=== PATIENT | male | born 1980 | race Caucasian/White ===

== ENCOUNTER 2025-05-19 07:21 | Inpatient (IN) | payer OTHER ==
[2025-05-19] VITALS (16 sets, daily range): BP systolic 128–171; BP diastolic 50–106; PULSE 61–97; RESP 16–18; TEMP 36.3–36.6; O2SAT 95–96
[~2025-05-19] VITALS: Ht 172.7 cm; Wt 79.8 kg
[2025-05-19 07:55] LABS: CLARITY URINE CLEAR (CLEAR); COLOR URINE YELLOW (YELLOW); GLUCOSE URINE NEGATIVE (NEGATIVE); KETONES URINE TRACE (NEGATIVE); LEUKOCYTE ESTERASE URINE TRACE (NEGATIVE); NITRITE URINE NEGATIVE (NEGATIVE); OCCULT BLOOD URINE NEGATIVE (NEGATIVE); PH URINE 6.5 (4.5-8.0); PROTEIN URINE 1+ (NEGATIVE); SPECIFIC GRAVITY URINE 1.044 (1.005-1.030); UROBILINOGEN URINE 1.0 E.U./dL (0.2-1.0)
[2025-05-19 08:02] LABS: HEMATOCRIT. 40.3 % (42.0-52.0); HEMOGLOBIN. 13.3 g/dL (14.0-18.0); MEAN PLATELET VOLUME 8.0 fl (7.4-10.4); PLATELET 346 x1000/uL (130-400); RED BLOOD CELL COUNT 4.48 mill/uL (4.7-6.1); RED CELL DISTRIBUTION WIDTH 15.2 % (11.6-14.6)
[2025-05-19 08:23] LABS: CREATININE 0.8 mg/dL (0.6-1.3); UREA NITROGEN BLOOD 27 mg/dL (9-23)
[2025-05-19 08:58] LABS: MUCUS URINE TRACE /lpf (NONE/TRACE)
[2025-05-19 08:59] LABS: BACTERIA URINE TRACE; RBC URINE 0-2 /hpf (0-2); SQUAMOUS EPITHELIAL CELL URINE NONE SEEN /lpf (RARE/1+)
[2025-05-19 09:00] LABS: WBC URINE 0-2 /hpf (0-2)
[2025-05-19 09:13] LABS: BILIRUBIN DIRECT < 0.1 mg/dL (<=3.0)
[2025-05-19 09:14] LABS: ASPARTATE AMINOTRANSFERASE 249 IU/L (<34); BILIRUBIN TOTAL 0.3 mg/dL (0.1-1.0); PROTEIN TOTAL 6.9 g/dL (6.0-8.3)
[2025-05-19] MEDS: MORPHINE SULFATE 4 MG/ML INJ (FOR IV/IM USE) IV ONE (09:30)
[2025-05-19] MEDS: SODIUM CHLORIDE 0.9% (SEPSIS BOLUS) IV ONE (09:40)
[2025-05-19] MEDS: PIPERACILLIN/TAZO 3.375G/50ML 50 ML IV ONE (09:41)
[2025-05-19] MEDS: DIATR MEGLU/DIATRIZOATE SOLN 120ML ONE (10:00)
[2025-05-19] MEDS: VANCOMYCIN 1G PREMIX 200 ML IV ONE (10:02)
[2025-05-19] MEDS ORDERED: BUPIVACAINE HCL/PF 0.5% (5MG/ML) 10ML ONE (10:15)
[2025-05-19 11:30] LABS: INR 1.0
[2025-05-19] MEDS ORDERED: FENTANYL CITRATE/PF 50MCG/ML 2ML VIAL ONE (11:50)
[2025-05-19] MEDS: IOHEXOL-300 100 ML BOTTLE ONE (11:57)
[2025-05-19] MEDS: FENTANYL CITRATE/PF 50MCG/ML 2ML VIAL IV NR (12:26)
[2025-05-19] MEDS: LIDOCAINE HCL 1% 10 MG/ML 10ML VIAL ONE (13:43)
[2025-05-19 13:46] LABS: BAND% 17.0 % (1.0-6.0); LYMPHOCYTES % MANUAL 3.0 % (20.0-50.0); MONOCYTES % MANUAL 3.0 % (2.0-8.0); NEUTROPHILS % MANUAL 77.0 % (45.0-75.0)
[2025-05-19 13:47] LABS: PLATELET ESTIMATE NORMAL
[2025-05-19] MEDS ORDERED: ATOR20TA65 PO (15:47)
[2025-05-19] MEDS ORDERED: IPRATROPIUM/ALBUTEROL 0.5-3(2.5)MG/3ML NEB HHN PRN (17:30)
[2025-05-19] MEDS ORDERED: CLONIDINE 0.1MG TABLET PO PRN (17:30)
[2025-05-19] MEDS ORDERED: HYDRALAZINE 20MG/ML VIAL IV PRN (17:30)
[2025-05-19] MEDS ORDERED: ONDANSETRON HCL 4MG/2ML INJ IV PRN (17:30)
[2025-05-19] MEDS: DEXT 5%/0.45% NACL 1000ML 1,000 ML IV SCH (18:06)
[2025-05-19] MEDS: PIPERACILLIN/TAZO 3.375G/50ML 50 ML IV SCH (18:07)
[2025-05-19] MEDS: MORPHINE SULFATE 2 MG/ML INJ (NOT FOR IM USE) IV PRN (18:08)
[2025-05-19 19:33] LABS: *AMPHETAMINES SCREEN URINE NEGATIVE (NEGATIVE); *BARBITURATES SCREEN URINE NEGATIVE (NEGATIVE); *BENZODIAZEPINES SCREEN URINE NEGATIVE (NEGATIVE); *COCAINE SCREEN URINE NEGATIVE (NEGATIVE); CANNABINOID URINE SCREEN NEGATIVE (NEGATIVE); ECSTASY MDMA SCREEN URINE NEGATIVE (NEGATIVE); METHADONE URINE SCREEN NEGATIVE (NEGATIVE); OPIATES URINE SCREEN PRESUMPTIVE POSITIVE (NEGATIVE); PHENCYCLIDINE URINE SCREEN NEGATIVE (NEGATIVE)
[2025-05-19] MEDS ORDERED: SODIUM CHLORIDE 10% FOR INH 15ML NEB INH SCH (19:45)
[2025-05-19] MEDS: VANCOMYCIN 1.5GM PMX (XELLIA) 300 ML IV SCH (21:41)
[2025-05-20] VITALS (10 sets, daily range): BP systolic 119–131; BP diastolic 76–89; PULSE 69–93; RESP 16–20; TEMP 36.1–36.9; O2SAT 95–97
[2025-05-20] MEDS: IPRATROPIUM/ALBUTEROL 0.5-3(2.5)MG/3ML NEB HHN SCH (05:00)
[2025-05-20] MEDS: PANTOPRAZOLE SODIUM 40 MG/VIAL IV SCH (08:47)
[2025-05-20 09:12] LABS: BG BASE EXCESS -0.6 mmol/L (-2.0-3.0); BG CARBOXYHEMOGLOBIN 1.3 % (0.5-1.5); BG DEOXYHEMOGLOBIN 4.8 % (0.0-5.0); BG FRACTION INSPIRED OXYGEN 21; BG HCO3 ACT 21.7 mmol/L (21.0-28.0); BG METHEMOGLOBIN 0.0 % (0.5-1.5); BG OXYGEN SATURATION 95.1 % (94.0-98.0); BG OXYHEMOGLOBIN 93.9 % (94.0-98.0); BG PCO2 30.5 mmHg (35.0-48.0); BG PH 7.471 (7.350-7.450); BG PO2 73.3 mmHg (83.0-108.0); BG SAMPLE SITE RIGHT RADIAL; BG TOTAL HEMOGLOBIN 16.7 g/dL (13.5-17.5); BG VENT MODE ROOM AIR
[2025-05-20] MEDS: PIPERACILLIN/TAZO 3.375G/50ML 50 ML IV SCH (10:54)
[2025-05-20] MEDS ORDERED: NALOXONE HCL 0.4MG/ML VIAL IV PRN (11:30)
[2025-05-20] MEDS: MORPHINE SULFATE 2 MG/ML INJ (NOT FOR IM USE) IV PRN (11:34)
[2025-05-20 19:10] LABS: BASOPHILS % 0.1 % (0.0-2.0); EOSINOPHILS % 0.1 % (0.0-5.0); HEMATOCRIT. 44.0 % (42.0-52.0); HEMOGLOBIN. 14.6 g/dL (14.0-18.0); LYMPHOCYTES % 8.7 % (20.0-50.0); MEAN PLATELET VOLUME 7.7 fl (7.4-10.4); MONOCYTES % 7.3 % (2.0-8.0); NEUTROPHILS % 83.8 % (40.0-76.0); PLATELET 364 x1000/uL (130-400); RED BLOOD CELL COUNT 4.95 mill/uL (4.7-6.1); RED CELL DISTRIBUTION WIDTH 15.4 % (11.6-14.6)
[2025-05-20 19:29] LABS: CREATININE 0.8 mg/dL (0.6-1.3); UREA NITROGEN BLOOD 22 mg/dL (9-23)
[2025-05-20 19:31] LABS: ASPARTATE AMINOTRANSFERASE 54 IU/L (<34); BILIRUBIN DIRECT 0.2 mg/dL (<=3.0); BILIRUBIN TOTAL 0.8 mg/dL (0.1-1.0); PHOSPHORUS 4.1 mg/dL (2.5-4.9)
[2025-05-20 19:32] LABS: PROTEIN TOTAL 6.8 g/dL (6.0-8.3)
[2025-05-20 20:06] LABS: HEPATITIS A AB IGM NEGATIVE (Negative)
[2025-05-20 20:07] LABS: HEPATITIS B CORE AB IGM NEGATIVE (Negative); HEPATITIS C AB NON REACTIVE (Neg) (Negative)
[2025-05-20 21:08] LABS: INR 1.1
[2025-05-21] VITALS (12 sets, daily range): BP systolic 105–127; BP diastolic 54–87; PULSE 80–100; RESP 16–20; TEMP 36.1–37.1; O2SAT 95–98
[2025-05-21 06:17] LABS: CREATININE 1.0 mg/dL (0.6-1.3)
[2025-05-21 06:18] LABS: UREA NITROGEN BLOOD 24 mg/dL (9-23)
[2025-05-21 06:22] LABS: TRIGLYCERIDE 189.0 mg/dL (0-150)
[2025-05-21 06:23] LABS: LDL CHOLESTEROL 62.0 mg/dL (5-100)
[2025-05-21 07:23] LABS: BASOPHILS % 0.1 % (0.0-2.0); EOSINOPHILS % 0.1 % (0.0-5.0); HEMATOCRIT. 42.4 % (42.0-52.0); HEMOGLOBIN. 14.0 g/dL (14.0-18.0); LYMPHOCYTES % 12.1 % (20.0-50.0); MEAN PLATELET VOLUME 8.0 fl (7.4-10.4); MONOCYTES % 7.6 % (2.0-8.0); NEUTROPHILS % 80.1 % (40.0-76.0); PLATELET 415 x1000/uL (130-400); RED BLOOD CELL COUNT 4.76 mill/uL (4.7-6.1); RED CELL DISTRIBUTION WIDTH 15.8 % (11.6-14.6)
[2025-05-21] MEDS: SODIUM CHLORIDE 10% FOR INH 15ML NEB INH SCH (09:55)
[2025-05-21] MEDS: ENOXAPARIN 40MG/0.4ML SYR SUBCUT SCH (11:15)
[2025-05-21] MEDS ORDERED: SODIUM CHLORIDE 10% FOR INH 15ML NEB INH SCH (19:45)
[2025-05-21] MEDS: VANCOMYCIN 1.25GM/250ML 250 ML IV SCH (20:46)
[2025-05-22] VITALS (12 sets, daily range): BP systolic 105–137; BP diastolic 56–83; PULSE 88–95; RESP 18–20; TEMP 36.3–37.3; O2SAT 10–100
[2025-05-22 06:52] LABS: HEMATOCRIT. 43.2 % (42.0-52.0); HEMOGLOBIN. 14.3 g/dL (14.0-18.0); MEAN PLATELET VOLUME 7.8 fl (7.4-10.4); PLATELET 386 x1000/uL (130-400); RED BLOOD CELL COUNT 4.93 mill/uL (4.7-6.1); RED CELL DISTRIBUTION WIDTH 15.4 % (11.6-14.6)
[2025-05-22 06:56] LABS: CREATININE 0.8 mg/dL (0.6-1.3); UREA NITROGEN BLOOD 23 mg/dL (9-23)
[2025-05-22] MEDS: POTASSIUM CHLORIDE 20MEQ TABLET SR PO SCH (15:03)
[2025-05-22 16:20] LABS: LYMPHOCYTES % MANUAL 13.0 % (20.0-50.0); MONOCYTES % MANUAL 10.0 % (2.0-8.0); NEUTROPHILS % MANUAL 77.0 % (45.0-75.0); PLATELET ESTIMATE NORMAL
[2025-05-23] VITALS (10 sets, daily range): BP systolic 114–139; BP diastolic 81–97; PULSE 84–90; RESP 16–20; TEMP 36.1–38.4; O2SAT 95–98
[2025-05-23] MEDS: ACETAMINOPHEN 325MG TABLET PO PRN ×2 (04:45→22:26)
[2025-05-23] MEDS: MORPHINE SULFATE 2 MG/ML INJ (NOT FOR IM USE) IV PRN (05:45)
[2025-05-23 09:07] LABS: ALPHA FETOPROTEIN TUMOR MARKER 2.4 ng/mL (0.0-6.9)
[2025-05-23] MEDS: FAMOTIDINE 20MG/2ML VIAL IV SCH (09:23)
[2025-05-23 09:59] LABS: CREATININE 0.9 mg/dL (0.6-1.3); UREA NITROGEN BLOOD 12 mg/dL (9-23)
[2025-05-23 10:03] LABS: BASOPHILS % 0.2 % (0.0-2.0); EOSINOPHILS % 0.5 % (0.0-5.0); HEMATOCRIT. 36.8 % (42.0-52.0); HEMOGLOBIN. 12.1 g/dL (14.0-18.0); LYMPHOCYTES % 7.7 % (20.0-50.0); MEAN PLATELET VOLUME 7.7 fl (7.4-10.4); MONOCYTES % 6.0 % (2.0-8.0); NEUTROPHILS % 85.6 % (40.0-76.0); PLATELET 394 x1000/uL (130-400); RED BLOOD CELL COUNT 4.15 mill/uL (4.7-6.1); RED CELL DISTRIBUTION WIDTH 15.2 % (11.6-14.6)
[2025-05-23 10:08] LABS: CA 19-9 7.0 U/mL (0-35); CARCINOEMBRYONIC AG - SEND OUT 1.4 ng/mL (0.0-4.7)
[2025-05-23 13:07] LABS: PROSTATE SPECIFIC AG TOTAL 0.3 ng/mL (0.0-4.0)
[2025-05-23] MEDS: POTASSIUM CHLORIDE 20MEQ TABLET SR PO NR (16:19)
[2025-05-24] VITALS (8 sets, daily range): BP systolic 119–137; BP diastolic 78–87; PULSE 78–99; RESP 16–20; TEMP 36.7–37.2; O2SAT 96–99
[2025-05-24 06:48] LABS: BASOPHILS % 0.1 % (0.0-2.0); EOSINOPHILS % 0.6 % (0.0-5.0); HEMATOCRIT. 40.3 % (42.0-52.0); HEMOGLOBIN. 13.3 g/dL (14.0-18.0); LYMPHOCYTES % 9.5 % (20.0-50.0); MEAN PLATELET VOLUME 7.4 fl (7.4-10.4); MONOCYTES % 5.9 % (2.0-8.0); NEUTROPHILS % 83.9 % (40.0-76.0); PLATELET 420 x1000/uL (130-400); RED BLOOD CELL COUNT 4.59 mill/uL (4.7-6.1); RED CELL DISTRIBUTION WIDTH 15.0 % (11.6-14.6)
[2025-05-24 07:07] LABS: CREATININE 0.8 mg/dL (0.6-1.3)
[2025-05-24 07:26] LABS: UREA NITROGEN BLOOD 11 mg/dL (9-23)
[2025-05-24] MEDS: HYDROCODONE/ACETAMINOPHEN 5/325MG TABLET PO PRN (10:52)
[2025-05-25] VITALS: BP 155/81; PULSE 89; PULSE 92; RESP 18; RESP 20; TEMP 36.9; O2SAT 95
[2025-05-25 04:00] VITALS: BP 125/86; PULSE 97; RESP 18; TEMP 37.1; O2SAT 97
[2025-05-25 08:00] VITALS: BP 127/81; PULSE 85; TEMP 36.3; O2SAT 17
[2025-05-25 12:00] VITALS: BP 133/84; PULSE 88; RESP 18; TEMP 36.4; O2SAT 99
[2025-05-25 16:00] VITALS: BP 130/79; PULSE 90; RESP 20; TEMP 36.6; O2SAT 99
[2025-05-25 20:00] VITALS: BP 118/71; PULSE 86; RESP 20; TEMP 36.6; O2SAT 100
[2025-05-26] VITALS: BP 132/76; PULSE 79; RESP 20; TEMP 36.4; O2SAT 99
[2025-05-26 04:00] VITALS: BP 146/76; PULSE 81; RESP 20; TEMP 36.6; O2SAT 98
[2025-05-26 08:00] VITALS: BP 122/91; PULSE 104; RESP 20; TEMP 36.3; O2SAT 96
[2025-05-26 12:00] VITALS: BP 120/89; PULSE 99; RESP 20; TEMP 36.6; O2SAT 98
[2025-05-26 16:00] VITALS: BP 136/94; PULSE 98; RESP 21; TEMP 36.7; O2SAT 98
[2025-05-26 20:03] VITALS: BP 139/87; PULSE 97; RESP 20; TEMP 36.3; O2SAT 98
[2025-05-26] MEDS: ZOLPIDEM TARTRATE 5MG TABLET PO PRN (21:50)
[2025-05-27] VITALS: BP 148/89; PULSE 83; RESP 18; TEMP 36.2; O2SAT 97
[2025-05-27 04:00] VITALS: BP 133/81; PULSE 88; RESP 19; TEMP 36.3; O2SAT 97
[2025-05-27 07:47] LABS: HEMATOCRIT. 35.6 % (42.0-52.0); HEMOGLOBIN. 11.8 g/dL (14.0-18.0); MEAN PLATELET VOLUME 7.8 fl (7.4-10.4); PLATELET 492 x1000/uL (130-400); RED BLOOD CELL COUNT 4.04 mill/uL (4.7-6.1); RED CELL DISTRIBUTION WIDTH 14.7 % (11.6-14.6)
[2025-05-27 08:00] VITALS: BP 119/75; PULSE 96; RESP 20; TEMP 36.6; O2SAT 98
[2025-05-27 12:00] VITALS: BP 125/74; PULSE 91; RESP 19; TEMP 36.6; O2SAT 99
[2025-05-27 16:00] VITALS: BP 122/79; PULSE 93; RESP 20; TEMP 36.8; O2SAT 98
[2025-05-27 20:00] VITALS: BP 129/80; PULSE 101; RESP 19; TEMP 36.3; O2SAT 98
[2025-05-27 22:34] LABS: BAND% 3.0 % (1.0-6.0); LYMPHOCYTES % MANUAL 5.0 % (20.0-50.0); MONOCYTES % MANUAL 8.0 % (2.0-8.0); NEUTROPHILS % MANUAL 84.0 % (45.0-75.0); PLATELET ESTIMATE NORMAL
[2025-05-28] VITALS: BP 153/86; PULSE 101; RESP 19; TEMP 36.6; O2SAT 96
[2025-05-28 04:00] VITALS: BP 131/57; PULSE 102; RESP 19; TEMP 36.2; O2SAT 97
[2025-05-28 06:28] LABS: HEMATOCRIT. 39.2 % (42.0-52.0); HEMOGLOBIN. 13.1 g/dL (14.0-18.0); MEAN PLATELET VOLUME 7.4 fl (7.4-10.4); PLATELET 537 x1000/uL (130-400); RED BLOOD CELL COUNT 4.50 mill/uL (4.7-6.1); RED CELL DISTRIBUTION WIDTH 15.1 % (11.6-14.6)
[2025-05-28 08:09] VITALS: BP 115/75; PULSE 102; RESP 20; TEMP 36.6; O2SAT 93
[2025-05-28 11:45] VITALS: BP 119/79; PULSE 97; RESP 20; TEMP 36.8; O2SAT 95
[2025-05-28] MEDS ORDERED: DIATR MEGLU/DIATRIZOATE SOLN 30ML PO SCH (11:45)
[2025-05-28 13:42] LABS: BAND% 17.0 % (1.0-6.0); LYMPHOCYTES % MANUAL 7.0 % (20.0-50.0); MONOCYTES % MANUAL 7.0 % (2.0-8.0); NEUTROPHILS % MANUAL 69.0 % (45.0-75.0)
[2025-05-28 13:43] LABS: PLATELET ESTIMATE INCREASED
[2025-05-28 15:57] VITALS: BP 111/70; PULSE 115; RESP 20; TEMP 36.9; O2SAT 99
[2025-05-28 20:00] VITALS: BP 142/87; PULSE 110; RESP 20; TEMP 37.7; O2SAT 97
[2025-05-29] VITALS (7 sets, daily range): BP systolic 115–140; BP diastolic 71–85; PULSE 99–109; RESP 18–20; TEMP 36.5–38.7; O2SAT 95–98
[2025-05-29 06:49] LABS: CREATININE 0.8 mg/dL (0.6-1.3)
[2025-05-29 06:50] LABS: HEMATOCRIT. 38.5 % (42.0-52.0); HEMOGLOBIN. 12.8 g/dL (14.0-18.0); MEAN PLATELET VOLUME 7.3 fl (7.4-10.4); PLATELET 555 x1000/uL (130-400); RED BLOOD CELL COUNT 4.43 mill/uL (4.7-6.1); RED CELL DISTRIBUTION WIDTH 15.0 % (11.6-14.6)
[2025-05-29 06:51] LABS: UREA NITROGEN BLOOD 8 mg/dL (9-23)
[2025-05-29] MEDS ORDERED: NALOXONE HCL 0.4MG/ML VIAL IV PRN (08:00)
[2025-05-29] MEDS: POTASSIUM CHLORIDE 20MEQ TABLET SR PO NR (08:23)
[2025-05-29] MEDS: DOCUSATE SODIUM 100MG CAPSULE PO PRN (09:04)
[2025-05-29 16:09] LABS: EOSINOPHILS % MANUAL 1.0 % (0.0-5.0); LYMPHOCYTES % MANUAL 7.0 % (20.0-50.0); MONOCYTES % MANUAL 4.0 % (2.0-8.0); NEUTROPHILS % MANUAL 88.0 % (45.0-75.0)
[2025-05-29 16:10] LABS: PLATELET ESTIMATE SLIGHTL
[2025-05-29] MEDS: HYDROCODONE/ACETAMINOPHEN 5/325MG TABLET PO PRN (17:09)
[2025-05-30 04:00] VITALS: BP 118/72; PULSE 93; RESP 18; TEMP 36.7; O2SAT 95
[2025-05-30 06:13] LABS: CREATININE 0.7 mg/dL (0.6-1.3)
[2025-05-30 06:15] LABS: UREA NITROGEN BLOOD 8 mg/dL (9-23)
[2025-05-30 06:29] LABS: HEMATOCRIT. 37.0 % (42.0-52.0); HEMOGLOBIN. 12.5 g/dL (14.0-18.0); MEAN PLATELET VOLUME 7.4 fl (7.4-10.4); PLATELET 571 x1000/uL (130-400); RED BLOOD CELL COUNT 4.25 mill/uL (4.7-6.1); RED CELL DISTRIBUTION WIDTH 14.7 % (11.6-14.6)
[2025-05-30 08:00] VITALS: BP 118/73; PULSE 88; RESP 20; TEMP 36.6; O2SAT 94
[2025-05-30 10:41] LABS: BAND% 8.0 % (1.0-6.0); EOSINOPHILS % MANUAL 2.0 % (0.0-5.0); LYMPHOCYTES % MANUAL 4.0 % (20.0-50.0); MONOCYTES % MANUAL 9.0 % (2.0-8.0); NEUTROPHILS % MANUAL 77.0 % (45.0-75.0); PLATELET ESTIMATE INCREASED
[2025-05-30 12:00] VITALS: BP 121/77; PULSE 91; RESP 20; TEMP 36.4; O2SAT 95
[2025-05-30] MEDS: POTASSIUM CHLORIDE 20MEQ TABLET SR PO NR (12:00)
[2025-05-30 16:00] VITALS: BP 121/86; PULSE 89; RESP 18; TEMP 37.2; O2SAT 95
[2025-05-30 20:00] VITALS: BP 115/72; PULSE 80; RESP 18; TEMP 36.9; O2SAT 96
[2025-05-31] VITALS: BP 133/81; PULSE 96; RESP 20; TEMP 37.7; O2SAT 97
[2025-05-31 04:00] VITALS: BP 143/75; PULSE 86; RESP 20; TEMP 37.7; O2SAT 99
[2025-05-31 06:09] LABS: CREATININE 0.7 mg/dL (0.6-1.3); UREA NITROGEN BLOOD 9 mg/dL (9-23)
[2025-05-31 06:48] LABS: BASOPHILS % 0.3 % (0.0-2.0); EOSINOPHILS % 0.8 % (0.0-5.0); HEMATOCRIT. 37.0 % (42.0-52.0); HEMOGLOBIN. 12.7 g/dL (14.0-18.0); LYMPHOCYTES % 9.5 % (20.0-50.0); MEAN PLATELET VOLUME 7.3 fl (7.4-10.4); MONOCYTES % 9.0 % (2.0-8.0); NEUTROPHILS % 80.4 % (40.0-76.0); PLATELET 586 x1000/uL (130-400); RED BLOOD CELL COUNT 4.29 mill/uL (4.7-6.1); RED CELL DISTRIBUTION WIDTH 14.7 % (11.6-14.6)
[2025-05-31 08:00] VITALS: BP 125/83; PULSE 94; RESP 18; TEMP 36.9; O2SAT 98
[2025-05-31 12:00] VITALS: BP 121/79; PULSE 92; RESP 18; TEMP 36.9; O2SAT 99
[2025-05-31 16:00] VITALS: BP 120/78; PULSE 91; RESP 18; TEMP 36.7; O2SAT 100
[2025-05-31 20:00] VITALS: BP 122/81; PULSE 90; RESP 20; TEMP 37; O2SAT 96
[2025-06-01] VITALS (15 sets, daily range): BP systolic 117–161; BP diastolic 54–89; PULSE 78–105; RESP 16–20; TEMP 36–37; O2SAT 94–98
[2025-06-01] MEDS ORDERED: FENTANYL CITRATE/PF 50MCG/ML 2ML VIAL ONE (08:47)
[2025-06-01] MEDS: FENTANYL CITRATE/PF 50MCG/ML 2ML VIAL IV ONE (09:15)
[2025-06-02] VITALS: BP 138/83; PULSE 95; RESP 20; TEMP 36.2; O2SAT 97
[2025-06-02] MEDS: ZOLPIDEM TARTRATE 5MG TABLET PO PRN (00:05)
[2025-06-02 04:00] VITALS: BP 122/77; PULSE 71; RESP 20; TEMP 35.6; O2SAT 96
[2025-06-02 08:00] VITALS: BP 125/76; PULSE 97; RESP 18; TEMP 37; O2SAT 97
[2025-06-02 11:52] VITALS: BP 132/78; PULSE 81; RESP 18; TEMP 36.7; O2SAT 98
[2025-06-02] MEDS: SENNOSIDES/DOCUSATE SOD 8.6/50MG TABLET PO PRN (15:42)
[2025-06-02] MEDS: POLYETHYLENE GLYCOL 3350 (17GM) 1 DOSE PACK PO SCH (15:50)
[2025-06-02 16:00] VITALS: BP 123/73; PULSE 102; RESP 20; TEMP 36.6; O2SAT 100
[2025-06-02 20:04] VITALS: BP 133/82; PULSE 98; RESP 20; TEMP 37.1; O2SAT 96
[2025-06-03] VITALS: BP 141/83; PULSE 89; RESP 20; TEMP 36.8; O2SAT 97
[2025-06-03 03:59] VITALS: BP 129/72; PULSE 87; RESP 18; TEMP 36.6; O2SAT 96
[2025-06-03 08:00] VITALS: BP 138/78; PULSE 92; RESP 18; TEMP 36.7; O2SAT 98
[2025-06-03 12:00] VITALS: BP 126/74; PULSE 97; RESP 18; TEMP 36.8; O2SAT 96
[2025-06-03] MEDS: HYDROCODONE/ACETAMINOPHEN 5/325MG TABLET PO PRN (14:08)
[2025-06-03 16:00] VITALS: BP 130/72; PULSE 101; RESP 18; TEMP 36.7; O2SAT 97
[2025-06-03 20:00] VITALS: BP 113/74; PULSE 91; RESP 18; TEMP 36.7; O2SAT 97
[2025-06-04] VITALS: BP 128/82; PULSE 95; RESP 18; TEMP 37; O2SAT 96
[2025-06-04 04:00] VITALS: BP 129/89; PULSE 87; RESP 20; TEMP 36.8; O2SAT 100
[2025-06-04 07:08] LABS: CREATININE 0.7 mg/dL (0.6-1.3)
[2025-06-04 07:09] LABS: UREA NITROGEN BLOOD 8 mg/dL (9-23)
[2025-06-04 07:23] LABS: BASOPHILS % 0.2 % (0.0-2.0); EOSINOPHILS % 0.6 % (0.0-5.0); HEMATOCRIT. 37.4 % (42.0-52.0); HEMOGLOBIN. 12.6 g/dL (14.0-18.0); LYMPHOCYTES % 12.6 % (20.0-50.0); MEAN PLATELET VOLUME 7.2 fl (7.4-10.4); MONOCYTES % 8.0 % (2.0-8.0); NEUTROPHILS % 78.6 % (40.0-76.0); PLATELET 790 x1000/uL (130-400); RED BLOOD CELL COUNT 4.35 mill/uL (4.7-6.1); RED CELL DISTRIBUTION WIDTH 14.8 % (11.6-14.6)
[2025-06-04 08:00] VITALS: BP 133/87; PULSE 90; RESP 18; TEMP 36.7; O2SAT 99
[2025-06-04] MEDS: FINASTERIDE 5MG TABLET PO SCH (09:15)
[2025-06-04 12:00] VITALS: BP 125/85; PULSE 91; RESP 19; TEMP 36.8; O2SAT 97
[2025-06-04] MEDS ORDERED: NALOXONE HCL 0.4MG/ML VIAL IV PRN (12:45)
[2025-06-04] MEDS ORDERED: HYDRALAZINE 10 MG in SODIUM CHLORIDE 0.9% 49.5 ML IV PRN (13:00)
[2025-06-04] MEDS: ENOXAPARIN 40MG/0.4ML SYR SUBCUT SCH (13:41)
[2025-06-04 16:00] VITALS: BP 124/88; PULSE 92; RESP 20; TEMP 36.8; O2SAT 98
[2025-06-04 20:00] VITALS: BP 127/84; PULSE 90; RESP 20; TEMP 36.6; O2SAT 97
[2025-06-04] MEDS: TAMSULOSIN HCL 0.4MG SR CAPSULE PO SCH (20:39)
[2025-06-05] VITALS: BP 129/85; PULSE 91; RESP 20; TEMP 36.4; O2SAT 98
[2025-06-05 04:00] VITALS: BP 131/88; PULSE 89; RESP 20; TEMP 36.7; O2SAT 99
[2025-06-05 07:25] LABS: BASOPHILS % 0.3 % (0.0-2.0); EOSINOPHILS % 0.5 % (0.0-5.0); HEMATOCRIT. 33.5 % (42.0-52.0); HEMOGLOBIN. 10.9 g/dL (14.0-18.0); LYMPHOCYTES % 7.8 % (20.0-50.0); MEAN PLATELET VOLUME 7.2 fl (7.4-10.4); MONOCYTES % 6.9 % (2.0-8.0); NEUTROPHILS % 84.5 % (40.0-76.0); PLATELET 694 x1000/uL (130-400); RED BLOOD CELL COUNT 3.80 mill/uL (4.7-6.1); RED CELL DISTRIBUTION WIDTH 14.6 % (11.6-14.6)
[2025-06-05 08:00] VITALS: BP 129/81; PULSE 94; RESP 18; TEMP 36.6; O2SAT 98
[2025-06-05 08:10] LABS: CREATININE 0.6 mg/dL (0.6-1.3); UREA NITROGEN BLOOD < 5 mg/dL (9-23)
[2025-06-05 12:00] VITALS: BP 123/78; PULSE 100; RESP 18; TEMP 36.9
[2025-06-05 16:00] VITALS: BP 130/65; PULSE 98; RESP 18; TEMP 36.6
[2025-06-05] MEDS ORDERED: MORPHINE SULFATE/PF 1 MG/ML 100 MG in BAG 1 EACH IV PRN (17:00)
[2025-06-05] MEDS: HYDROCODONE/ACETAMINOPHEN 10/325MG TABLET PO PRN (17:01)
[2025-06-05] MEDS ORDERED: TAMS-54 PO (17:03)
[2025-06-05 20:00] VITALS: BP 131/78; PULSE 101; RESP 18; TEMP 36.4; O2SAT 97
[2025-06-05] MEDS: MORPHINE SULFATE 2 MG/ML INJ (NOT FOR IM USE) IV PRN (20:17)
[2025-06-06] VITALS: BP 123/91; PULSE 95; RESP 16; TEMP 36.7; O2SAT 99
[2025-06-06 04:00] VITALS: BP 120/64; PULSE 109; RESP 18; TEMP 36.3; O2SAT 99
[2025-06-06 07:03] LABS: CREATININE 0.7 mg/dL (0.6-1.3); UREA NITROGEN BLOOD 6 mg/dL (9-23)
[2025-06-06 07:22] LABS: BASOPHILS % 0.3 % (0.0-2.0); EOSINOPHILS % 0.7 % (0.0-5.0); HEMATOCRIT. 37.1 % (42.0-52.0); HEMOGLOBIN. 12.2 g/dL (14.0-18.0); LYMPHOCYTES % 13.2 % (20.0-50.0); MEAN PLATELET VOLUME 6.8 fl (7.4-10.4); MONOCYTES % 7.9 % (2.0-8.0); NEUTROPHILS % 77.9 % (40.0-76.0); PLATELET 772 x1000/uL (130-400); RED BLOOD CELL COUNT 4.31 mill/uL (4.7-6.1); RED CELL DISTRIBUTION WIDTH 14.9 % (11.6-14.6)
[2025-06-06 08:00] VITALS: BP 129/85; PULSE 100; RESP 20; TEMP 36.6; O2SAT 97
[2025-06-06 12:00] VITALS: BP 125/84; PULSE 91; RESP 20; TEMP 36.7; O2SAT 97
[2025-06-06 16:00] VITALS: BP 121/78; PULSE 93; RESP 20; TEMP 36.5; O2SAT 96
[2025-06-06] MEDS ORDERED: POLYETHYLENE GLYCOL 3350 (17GM) 1 DOSE PACK PO PRN (18:45)
[2025-06-06 20:00] VITALS: BP 126/74; PULSE 99; RESP 19; TEMP 38.7; O2SAT 98
[2025-06-07] VITALS: BP 123/84; PULSE 103; RESP 20; TEMP 38.1; O2SAT 97
[2025-06-07 04:00] VITALS: BP 113/76; PULSE 105; RESP 19; TEMP 37.3; O2SAT 95
[2025-06-07 07:33] LABS: HEMATOCRIT. 35.6 % (42.0-52.0); HEMOGLOBIN. 12.0 g/dL (14.0-18.0); MEAN PLATELET VOLUME 6.7 fl (7.4-10.4); PLATELET 831 x1000/uL (130-400); RED BLOOD CELL COUNT 4.14 mill/uL (4.7-6.1); RED CELL DISTRIBUTION WIDTH 14.7 % (11.6-14.6)
[2025-06-07 08:00] VITALS: BP 124/72; PULSE 113; RESP 17; TEMP 38; O2SAT 99
[2025-06-07 12:00] VITALS: BP 116/71; PULSE 116; RESP 17; TEMP 38.4; O2SAT 97
[2025-06-07 14:58] LABS: BAND% 12.0 % (1.0-6.0); LYMPHOCYTES % MANUAL 6.0 % (20.0-50.0); MONOCYTES % MANUAL 10.0 % (2.0-8.0); NEUTROPHILS % MANUAL 72.0 % (45.0-75.0); PLATELET ESTIMATE INCREASED
[2025-06-07 16:00] VITALS: BP 121/81; PULSE 94; RESP 17; TEMP 37.6; O2SAT 94
[2025-06-07 20:00] VITALS: BP 139/83; PULSE 104; RESP 18; TEMP 36.8; O2SAT 96
[2025-06-08] VITALS: BP 123/78; PULSE 76; RESP 18; TEMP 36.4; O2SAT 100
[2025-06-08 04:00] VITALS: BP 120/80; PULSE 104; RESP 18; TEMP 37; O2SAT 92
[2025-06-08] MEDS: PIPERACILLIN/TAZO 3.375G/50ML 50 ML IV SCH (05:53)
[2025-06-08 08:00] VITALS: BP 104/64; PULSE 109; RESP 17; TEMP 37; O2SAT 96
[2025-06-08 12:00] VITALS: BP 113/72; PULSE 100; RESP 17; TEMP 37.9; O2SAT 97
[2025-06-08 14:07] LABS: HEMATOCRIT. 36.5 % (42.0-52.0); HEMOGLOBIN. 12.0 g/dL (14.0-18.0); MEAN PLATELET VOLUME 6.6 fl (7.4-10.4); PLATELET 865 x1000/uL (130-400); RED BLOOD CELL COUNT 4.22 mill/uL (4.7-6.1); RED CELL DISTRIBUTION WIDTH 14.8 % (11.6-14.6)
[2025-06-08 14:20] LABS: CREATININE 0.7 mg/dL (0.6-1.3); UREA NITROGEN BLOOD < 5 mg/dL (9-23)
[2025-06-08 14:22] LABS: PHOSPHORUS 4.9 mg/dL (2.5-4.9)
[2025-06-08 16:00] VITALS: BP 135/79; PULSE 107; RESP 17; TEMP 37.9; O2SAT 95
[2025-06-08 17:22] LABS: LYMPHOCYTES % MANUAL 10.0 % (20.0-50.0); MONOCYTES % MANUAL 6.0 % (2.0-8.0); NEUTROPHILS % MANUAL 84.0 % (45.0-75.0); PLATELET ESTIMATE MARKEDLY INCREASED
[2025-06-08 20:00] VITALS: BP 127/83; PULSE 105; RESP 18; TEMP 38.2; O2SAT 98
[2025-06-08] MEDS: METOPROLOL TARTRATE 25MG TABLET PO SCH (22:12)
[2025-06-09] VITALS: BP 126/79; PULSE 72; RESP 18; TEMP 36.9; O2SAT 98
[2025-06-09 04:00] VITALS: BP 127/79; PULSE 104; RESP 18; TEMP 37.6; O2SAT 96
[2025-06-09 08:00] VITALS: BP 117/79; PULSE 101; RESP 18; TEMP 36.2; O2SAT 96
[2025-06-09 10:32] LABS: HEMATOCRIT. 37.5 % (42.0-52.0); HEMOGLOBIN. 12.5 g/dL (14.0-18.0); MEAN PLATELET VOLUME 6.7 fl (7.4-10.4); PLATELET 918 x1000/uL (130-400); RED BLOOD CELL COUNT 4.35 mill/uL (4.7-6.1); RED CELL DISTRIBUTION WIDTH 14.8 % (11.6-14.6)
[2025-06-09 10:38] LABS: CREATININE 0.7 mg/dL (0.6-1.3); UREA NITROGEN BLOOD < 5 mg/dL (9-23)
[2025-06-09 12:00] VITALS: BP 123/76; PULSE 95; RESP 18; TEMP 36.3; O2SAT 95
[2025-06-09 15:10] LABS: BAND% 10.0 % (1.0-6.0); LYMPHOCYTES % MANUAL 9.0 % (20.0-50.0); MONOCYTES % MANUAL 9.0 % (2.0-8.0); NEUTROPHILS % MANUAL 72.0 % (45.0-75.0); PLATELET ESTIMATE INCREASED
[2025-06-09 16:00] VITALS: BP 131/83; PULSE 109; RESP 18; TEMP 36.6; O2SAT 96
[2025-06-09 20:00] VITALS: BP 119/85; PULSE 115; RESP 20; TEMP 37.7; O2SAT 96
[2025-06-10] VITALS (16 sets, daily range): BP systolic 119–141; BP diastolic 62–84; PULSE 99–117; RESP 16–22; TEMP 35.9–38.4; O2SAT 94–100
[2025-06-10] MEDS: HYDROCODONE/ACETAMINOPHEN 10/325MG TABLET PO PRN (01:42)
[2025-06-10] MEDS ORDERED: LIDOCAINE HCL 1% 10 MG/ML 10ML VIAL ONE (08:03)
[2025-06-10] MEDS ORDERED: FENTANYL CITRATE/PF 50MCG/ML 2ML VIAL ONE (10:34)
[2025-06-10] MEDS: FENTANYL CITRATE/PF 50MCG/ML 2ML VIAL IV SCH (10:50)
[2025-06-10] MEDS: MORPHINE SULFATE 4 MG/ML INJ (FOR IV/IM USE) IV PRN (16:48)
[2025-06-11] VITALS: BP 128/76; PULSE 94; RESP 20; TEMP 38.2; O2SAT 99
[2025-06-11 04:00] VITALS: BP 136/80; PULSE 95; RESP 20; TEMP 37.1; O2SAT 95
[2025-06-11 08:00] VITALS: BP 135/76; PULSE 93; RESP 19; TEMP 36.9; O2SAT 97
[2025-06-11 08:56] LABS: BASOPHILS % 0.1 % (0.0-2.0); EOSINOPHILS % 0.2 % (0.0-5.0); HEMATOCRIT. 32.8 % (42.0-52.0); HEMOGLOBIN. 11.1 g/dL (14.0-18.0); LYMPHOCYTES % 8.3 % (20.0-50.0); MEAN PLATELET VOLUME 6.7 fl (7.4-10.4); MONOCYTES % 5.6 % (2.0-8.0); NEUTROPHILS % 85.8 % (40.0-76.0); PLATELET 802 x1000/uL (130-400); RED BLOOD CELL COUNT 3.83 mill/uL (4.7-6.1); RED CELL DISTRIBUTION WIDTH 14.8 % (11.6-14.6)
[2025-06-11 09:10] LABS: CREATININE 0.6 mg/dL (0.6-1.3); UREA NITROGEN BLOOD 6 mg/dL (9-23)
[2025-06-11] MEDS: FAMOTIDINE 20MG TABLET PO SCH (09:19)
[2025-06-11 12:00] VITALS: BP 139/74; PULSE 95; RESP 20; TEMP 37.1; O2SAT 98
[2025-06-11 16:00] VITALS: BP 140/77; PULSE 97; RESP 20; TEMP 36.9; O2SAT 98
[2025-06-11 20:00] VITALS: BP 126/83; PULSE 107; RESP 16; TEMP 37.1; O2SAT 98
[2025-06-12] VITALS: BP 126/79; PULSE 83; RESP 18; TEMP 37.6; O2SAT 94
[2025-06-12 04:00] VITALS: BP 122/80; PULSE 83; RESP 18; TEMP 37.2; O2SAT 96
[2025-06-12 08:00] VITALS: BP 124/77; PULSE 104; RESP 17; TEMP 36.6; O2SAT 96
[2025-06-12 12:00] VITALS: BP 128/84; PULSE 99; RESP 19; TEMP 37.1; O2SAT 99
[2025-06-12 16:00] VITALS: BP 121/75; PULSE 96; RESP 18; TEMP 36.6; O2SAT 95
[2025-06-12 20:00] VITALS: BP 140/81; PULSE 60; RESP 20; TEMP 36.7; O2SAT 99
[2025-06-12] MEDS ORDERED: MORPHINE SULFATE 2 MG/ML INJ (NOT FOR IM USE) IV PRN (20:30)
[2025-06-12] MEDS: MORPHINE SULFATE 4 MG/ML INJ (FOR IV/IM USE) IV PRN (22:02)
[2025-06-13] VITALS: BP 122/82; PULSE 96; RESP 19; TEMP 36.7; O2SAT 96
[2025-06-13 04:00] VITALS: BP 125/82; PULSE 99; RESP 19; TEMP 36.4; O2SAT 99
[2025-06-13 08:00] VITALS: BP 123/77; PULSE 100; RESP 16; TEMP 36.8; O2SAT 100
[2025-06-13] MEDS: IOHEXOL-350 100 ML BOTTLE ONE (08:26)
[2025-06-13] MEDS: IOHEXOL-300 50 ML BOTTLE IV ONE ×2 (08:26→08:27)
[2025-06-13] MEDS: LIDOCAINE HCL 1% 10 MG/ML 10ML VIAL ONE (08:27)
[2025-06-13 12:00] VITALS: BP 128/83; PULSE 92; RESP 20; TEMP 36.1; O2SAT 100
[2025-06-13 13:38] LABS: HEMATOCRIT. 32.4 % (42.0-52.0); HEMOGLOBIN. 10.8 g/dL (14.0-18.0); MEAN PLATELET VOLUME 6.7 fl (7.4-10.4); PLATELET 834 x1000/uL (130-400); RED BLOOD CELL COUNT 3.78 mill/uL (4.7-6.1); RED CELL DISTRIBUTION WIDTH 14.6 % (11.6-14.6)
[2025-06-13 13:53] LABS: CREATININE 0.7 mg/dL (0.6-1.3); UREA NITROGEN BLOOD 6 mg/dL (9-23)
[2025-06-13 14:18] LABS: BAND% 5.0 % (1.0-6.0); EOSINOPHILS % MANUAL 1.0 % (0.0-5.0); LYMPHOCYTES % MANUAL 6.0 % (20.0-50.0); MONOCYTES % MANUAL 10.0 % (2.0-8.0); NEUTROPHILS % MANUAL 78.0 % (45.0-75.0)
[2025-06-13 14:20] LABS: PLATELET ESTIMATE MARKEDLY INCREASED
[2025-06-13 16:00] VITALS: BP 140/86; PULSE 71; PULSE 99; RESP 20; TEMP 36.6; O2SAT 100
[2025-06-13] MEDS ORDERED: AMOX1TAB16 MT (16:13)
[2025-06-13] MEDS ORDERED: GABA-1180 MT (16:13)
[2025-06-13] MEDS ORDERED: HYDR-4009 MT (16:13)
[2025-06-13] MEDS ORDERED: CEFP200T13 MT (16:13)
[2025-06-13] MEDS ORDERED: HYDR-4001 MT (16:13)
[2025-06-13] MEDS ORDERED: TOPUD PO (16:13)
[2025-06-13] MEDS ORDERED: FINA5TAB11 PO (16:13)
[2025-06-13] MEDS ORDERED: METO25TA6 PO (16:13)
[2025-06-13 20:00] VITALS: BP 118/75; PULSE 102; RESP 18; TEMP 37.1; O2SAT 96
[2025-06-14] VITALS: BP 106/63; PULSE 80; RESP 17; TEMP 36.6; O2SAT 96
[2025-06-14 04:00] VITALS: BP 115/86; PULSE 85; RESP 18; TEMP 36.7; O2SAT 97
[2025-06-14 08:00] VITALS: BP 121/85; PULSE 96; RESP 20; TEMP 36.7; O2SAT 98
[2025-06-14 12:00] VITALS: BP 116/83; PULSE 98; RESP 20; TEMP 36.7; O2SAT 99
[2025-06-14 13:07] VITALS: BP 116/83; PULSE 98; RESP 20; TEMP 98
== END 2025-06-14 14:16 | disposition home health service (06) | DRG 871 ==
LOC: ER 07:21 → 7WST 10:09 → ENRESERV 14:42 → 7WST 05-25 21:34 → 7EST 06-04 12:27
PROVIDERS: ADMIT Internal Medicine; ATTEND Internal Medicine
PROC: 0D9P30Z Drainage of Rectum with Drainage Device, Percutaneous Approach (ICD-10-PCS; principal; 2025-05-19)
PROC: 0J9C30Z Drainage of Pelvic Region Subcutaneous Tissue and Fascia with Drainage Device, Percutaneous Approach (ICD-10-PCS; 2025-06-01)
PROC: 0BBJ3ZX Excision of Left Lower Lung Lobe, Percutaneous Approach, Diagnostic (ICD-10-PCS; 2025-06-10)
DX: A41.51 Sepsis due to Escherichia coli [E. coli] (principal); I26.90 Septic pulmonary embolism without acute cor pulmonale; C34.92 Malignant neoplasm of unspecified part of left bronchus or lung; K61.1 Rectal abscess; K57.20 Diverticulitis of large intestine with perforation and abscess without bleeding; D72.825 Bandemia; K76.0 Fatty (change of) liver, not elsewhere classified; I10 Essential (primary) hypertension; E11.9 Type 2 diabetes mellitus without complications; K59.00 Constipation, unspecified; D72.829 Elevated white blood cell count, unspecified
CPT/HCPCS: 32408; 36415; 36600; 71045; 71250; 71275; 74174; 74176; 74177; 76700; 77012; 80048; 80061; 80076; 80202; 80305; 81003; 82105; 82375; 82378; 82805; 82977; 83036; 83605; 83735; 83880; 84100; 84145; 84153; 85025; 86301; 86705; 86709; 87070; 87075; 87077; 87102; 87116; 87149; 87153; 87186; 87340; 87556; 93005; 93970; 94070; 94640; 94664; 98960; 99152; 99153; 99291; A4606; C1729; C1760; C1769; J0665; J1308; J1650; J2003; J2270; J2405; J2470; J2543; J3010; J3373; J7030; J7131; L8514; Q9963; Q9967; G0500